=== PATIENT | male | born 1955 | race Caucasian/White ===

== ENCOUNTER 2017-01-20 16:52 | Emergency (ER) | payer SELFPAY ==
[~2017-01-20] VITALS: Ht 182.9 cm; Wt 68.2 kg
[~2017-01-20 16:52] MED LIST: CIPRO500 MG OR; LAMICTAL100 MG PO; LAMICTAL200 MG OR; METHADONE10 MG OR; METHADONE40 MG OR; PENICILLN VK500 M1 PO; SEROQUEL100 MG PO; SUBOXONE1 MI1 PO; ULTRAM50 M1 OR
[2017-01-20 18:09] VITALS: BP 141/86
== END 2017-01-20 18:09 | disposition home or self-care (01) | DRG 951 ==
LOC: ED 16:52
DX: Z76.0 Encounter for issue of repeat prescription (principal); F31.9 Bipolar disorder, unspecified; G89.29 Other chronic pain; M54.9 Dorsalgia, unspecified; F17.210 Nicotine dependence, cigarettes, uncomplicated

== ENCOUNTER 2023-11-27 10:13 | Emergency (ER) | payer MEDICARE ==
[~2023-11-27] VITALS: Ht 182.9 cm; Wt 68.0 kg
[2023-11-27] MEDS ORDERED: KETOROLAC TROMETHAMINE 30 MG/ML SDV IV ONE (10:30)
[2023-11-27] MEDS ORDERED: SODIUM CHLORIDE 0.9% 1,000 ML IV ONE (10:30)
[2023-11-27] MEDS ORDERED: ONDANSETRON HCl 4 MG/2 ML SDV IV ONE (10:30)
[2023-11-27 10:33] VITALS: BP 151/75
[2023-11-27 10:45] VITALS: BP 135/69
[2023-11-27 10:57] LABS: URINE BLOOD DIPSTICK Large (NEGATIVE); URINE GLUCOSE - DIPSTICK Negative (NEGATIVE); URINE KETONE 15 mg/dL (NEGATIVE); URINE LEUK ESTERASE Negative (NEGATIVE); URINE NITRITE - DIPSTICK Negative (Negative); URINE PH 5.5 (4.5-8.0); URINE PROTEIN - DIPSTICK 100 mg/dL (NEG-TRACE); URINE SPECIFIC GRAVITY >=1.030
[2023-11-27 11:03] LABS: BASO% 0.3 % (0-3); EOS% 0.2 % (0-8); HEMATOCRIT 44.8 % (39.0-50.0); HEMOGLOBIN 15.3 g/dl (14.0-18.0); IMMATURE GRANULOCYTES 0.3 % (0.0-5.0); LYMPH% 19.2 % (15-41); MEAN CELL VOLUME 94.1 fL CALC (80.0-100.0); MEAN CORPUSCULAR HGB 32.1 pG CALC (26.0-32.0); MEAN CORPUSCULAR HGB CONC 34.2 g/dL CAL (32.0-36.0); MONO% 5.3 % (2-13); NEUT# 7.36 thou/uL (1.82-7.42); NEUT% 74.7 % (42-76); RED BLOOD COUNT 4.76 mill/uL (4.70-6.10); RED CELL DISTRI WIDTH 12.6 % (11.5-15.5)
[2023-11-27 11:07] LABS: URINE COLOR Brown; URINE RBC 50-100 RBC/hpf (0-5)
[2023-11-27 11:08] LABS: URINE WBC 0-2 WBC/hpf (0-5)
[2023-11-27 11:11] LABS: ALBUMIN 4.6 g/dL (3.2-5.0); ALKALINE PHOSPHATASE 83 u/l (38-126); ANION GAP 9 (6-22 (CALC)); BILIRUBIN, TOTAL 0.9 mg/dL (0.2-1.3); BUN 17 mg/dL (8-23); BUN/CREATININE RATIO 23 (12-20 (CALC)); CARBON DIOXIDE 28 mmol/l (22-30); CHLORIDE 106 mmol/l (95-108); CREATININE 0.7 mg/dL (0.7-1.3); ESTIMATED GFR 99 ML/MIN (>=90 (CALC)); LIPASE 48 u/l (23-300); POTASSIUM 3.8 mmol/l (3.5-5.1); SGOT/AST 28 u/l (19-48); SODIUM 139 mmol/l (137-146); TOTAL PROTEIN 7.6 g/dL (6.3-8.2)
[2023-11-27] MEDS ORDERED: TRAMADOL HYDROC50 M1 PO ×2 (11:54→14:50)
[2023-11-27] MEDS ORDERED: TORADOL PO ×2 (11:54→14:50)
[2023-11-27] MEDS ORDERED: TAMSULOSIN0.4 MG PO ×2 (11:54→14:50)
[2023-11-27] MEDS ORDERED: ZOFRAN4 MG/TAB PO ×2 (11:56→14:50)
[2023-11-27 12:30] VITALS: BP 135/69
== END 2023-11-27 12:15 | disposition home or self-care (01) ==
LOC: ED 10:13
PROVIDERS: Family Medicine
DX: N20.1 Calculus of ureter (principal); F31.9 Bipolar disorder, unspecified; F17.200 Nicotine dependence, unspecified, uncomplicated